=== PATIENT | female | born 1955 | race Hispanic/Latino ===

== ENCOUNTER 2016-12-04 19:19 | Emergency (ER) | payer OTHER ==
[~2016-12-04] VITALS: Ht 157.5 cm; Wt 113.7 kg
[~2016-12-04 19:19] MED LIST: ADULT LOW DOSE81 M1 PO; ALBUTEROL SULF8.5 GM IH; ALIVE WOMEN'S1 EAC1 PO; AMLODIPINE BESYL5 MG PO; ASPIR-TRIN325 M1 PO; ASPIRIN325 MG PO; ATORVASTATIN CA20 MG PO; ATORVASTATIN CA40 MG PO; AUGMENTIN875 MG PO; BENTYL20 MG PO; CARAFATE1 GM PO; CIPROFLOXACIN250 MG; DILAUDID2 MG PO; DILAUDID4 MG PO; DYAZIDE, MA1 CAPSULE PO; ENDOCET 5-3251 EACH PO; ERGOCALCIF50000 UNIT; ERGOCALCIF50000 UNIT PO; FLAGYL500 MG PO; FLONASE16 G1 BOTH NARES; FML S.O.P.3.5 GM; GAS-X80 MG PO; GLUCOPHAGE1000 MG PO; GLUCOPHAGE500 MG PO; HYDROXYCHLOROQ200 MG; KENALOG,ARISTOC80 GM TP; LEVAQUIN750 MG PO; LEVEMIR100 UNIT/2 SC; LEVOFLOXACIN250 MG; LIPITOR40 MG PO; LISINOPRIL5 MG PO; LOPRESSOR25 MG PO; METFORMIN HCL500 MG PO; MICONAZOLE NITR45 GM VG; MILK THISTLE500 MG PO; NASONEX17 GM BOTH NARES; NITROSTAT,NITR0.4 M1 SL; NITROSTAT0.4 MG; NITROSTAT0.4 MG SL; NOVOLOG 10100 UNITS/ SC; NUCYNTA ER200 MG; OMEPRAZOLE40 M1 PO; PANTOPRAZOLE SO40 MG PO; PERCOCET 5/31 TABLET PO; PLAQUENIL200 MG; PLAQUENIL200 MG PO; PREDNISONE20 MG; PROMETHAZINE HC25 M1 PO; PROTONIX40 MG PO; RANITIDINE HCL150 MG PO; SIMVASTATIN PO; SIMVASTATIN20 MG PO; STADOL NASAL2.5 ML; SUCRALFATE1 GM PO; TRIAMTERENE-HC1 EACH; TRIAMTERENE-HC1 EACH PO; TRULICITY0.75 MG/0. SC; Tylenol Regular Stre PO; VENTOLIN HFA18 GM IH; ZANTAC300 MG PO; ZANTAC75 M1 PO; ZANTAC75 MG PO; ZITHROMAX250 MG PO; ZOCOR5 MG PO; ZOFRAN ODT8 MG PO
[2016-12-04 20:47] LABS: HEMATOCRIT 39.8 % (36.0-46.0); MCH 29.8 PG (29.0-34.0); MCHC 33.9 G/DL (30.0-36.0); MCV 87.9 FL (83-99); MEAN PLAT.VOLUME 11.5 uM^3 (9.5-12.4); PLATELET COUNT 189 K/uL (156-360); RBC DIS.WIDTH-CV 13.7 % (11.8-14.6); RBC DIS.WIDTH-SD 43.3 % (39-53); RED BLOOD COUNT 4.53 M/uL (3.80-5.20); WHITE BLOOD COUNT 6.9 K/uL (4.1-10.2)
[2016-12-04 20:57] LABS: CHLORIDE 96 mEq/L (99-109); POTASSIUM 3.7 mEq/L (3.7-5.4); SODIUM 133 mEq/L (136-147)
[2016-12-04 20:58] LABS: GLUCOSE 157 mg/dL (70-99)
[2016-12-04 21:00] LABS: ANION GAP 14 MEQ/L (2-14)
[2016-12-04 21:02] LABS: GFR ESTIMATE (CALCULATED) 38 mL/min/
[2016-12-04 21:03] LABS: UREA NITROGEN (BUN) 32 mg/dL (9-23)
[2016-12-05 01:10] LABS: ADD MIUA? NO; BILIRUBIN NEGATIVE; BLOOD NEGATIVE; COLOR YELLOW ((YELLOW)); GLUCOSE (STRIP) NEGATIVE; KETONES NEGATIVE; LEUKOCYTES NEGATIVE; NITRITE NEGATIVE; PROTEIN (STRIP) NEGATIVE; UCUL ADDED? NO; UROBILINOGEN 0.2 MG/DL (0.2-1.0)
[2016-12-05] MEDS ORDERED: FIORICET,ESG1 TABLET PO (01:12)
[2016-12-05 01:43] VITALS: BP 126/63
== END 2016-12-05 01:50 | disposition home or self-care (01) ==
LOC: EME 19:19
PROVIDERS: Physician Assistant
DX: R51 Headache (principal); R11.0 Nausea; E11.9 Type 2 diabetes mellitus without complications; E78.5 Hyperlipidemia, unspecified; J45.909 Unspecified asthma, uncomplicated; I25.2 Old myocardial infarction; Z98.61 Coronary angioplasty status; L93.0 Discoid lupus erythematosus; Z79.891 Long term (current) use of opiate analgesic; Z88.0 Allergy status to penicillin; Z88.6 Allergy status to analgesic agent; Z91.041 Radiographic dye allergy status; Z87.891 Personal history of nicotine dependence
CPT/HCPCS: 70450; 80048; 81003; 85027; 93005; 99281; 99284; J1100; J1170; J2765

== ENCOUNTER 2017-01-19 17:29 | Emergency (ER) | payer OTHER ==
[~2017-01-19] VITALS: Ht 157.5 cm; Wt 109.9 kg
[~2017-01-19 17:29] MED LIST changes: +FIORICET,ESG1 TABLET PO
[2017-01-19 18:46] LABS: ADD MIUA? NO; BILIRUBIN NEGATIVE; BLOOD NEGATIVE; COLOR YELLOW ((YELLOW)); GLUCOSE (STRIP) NEGATIVE; KETONES NEGATIVE; LEUKOCYTES NEGATIVE; NITRITE NEGATIVE; PROTEIN (STRIP) 30; UCUL ADDED? NO; UROBILINOGEN 0.2 MG/DL (0.2-1.0)
[2017-01-19 18:47] LABS: MCH 30.2 PG (29.0-34.0); MCV 88.9 FL (83-99); MEAN PLAT.VOLUME 11.5 uM^3 (9.5-12.4); PLATELET COUNT 196 K/uL (156-360); RBC DIS.WIDTH-CV 13.3 % (11.8-14.6); RBC DIS.WIDTH-SD 42.3 % (39-53); WHITE BLOOD COUNT 6.5 K/uL (4.1-10.2)
[2017-01-19 18:57] LABS: CHLORIDE 97 mEq/L (99-109); POTASSIUM 3.7 mEq/L (3.7-5.4); SODIUM 134 mEq/L (136-147)
[2017-01-19 19:00] LABS: GLUCOSE 108 mg/dL (70-99)
[2017-01-19 19:01] LABS: ANION GAP 10 MEQ/L (2-14)
[2017-01-19 19:02] LABS: TOTAL BILIRUBIN 0.5 mg/dL (0.0-1.0)
[2017-01-19 19:03] LABS: ALKALINE PHOSPHATASE 84 IU/L (3-129); GFR ESTIMATE (CALCULATED) 44 mL/min/
[2017-01-19 19:04] LABS: UREA NITROGEN (BUN) 32 mg/dL (9-23)
[2017-01-19 19:07] LABS: LIPASE 34 U/L (1.0-51.0)
[2017-01-19 20:06] VITALS: BP 154/78
== END 2017-01-19 20:52 | disposition home or self-care (01) ==
LOC: EME 17:29
PROVIDERS: Physician Assistant
DX: R10.11 Right upper quadrant pain (principal); R10.12 Left upper quadrant pain; J45.909 Unspecified asthma, uncomplicated; E11.9 Type 2 diabetes mellitus without complications; E78.5 Hyperlipidemia, unspecified; I25.2 Old myocardial infarction; M32.9 Systemic lupus erythematosus, unspecified; Z98.61 Coronary angioplasty status; Z87.891 Personal history of nicotine dependence
CPT/HCPCS: 74176; 80053; 81003; 83690; 85027; 93005; 99281; 99285; J2270; J2405; J7040

== ENCOUNTER 2017-05-13 13:25 | Emergency (ER) | payer OTHER ==
[~2017-05-13] VITALS: Ht 157.5 cm; Wt 109.0 kg
[2017-05-13 14:49] LABS: HEMATOCRIT 42.9 % (36.0-46.0); MCH 28.8 PG (29.0-34.0); MCHC 32.9 G/DL (30.0-36.0); MCV 87.6 FL (83-99); MEAN PLAT.VOLUME 11.6 uM^3 (9.5-12.4); PLATELET COUNT 186 K/uL (156-360); RBC DIS.WIDTH-SD 41.5 % (39-53); WHITE BLOOD COUNT 5.8 K/uL (4.1-10.2)
[2017-05-13 14:51] LABS: CHLORIDE 98 mEq/L (99-109); POTASSIUM 3.7 mEq/L (3.7-5.4); SODIUM 135 mEq/L (136-147)
[2017-05-13 14:53] LABS: GLUCOSE 160 mg/dL (70-99)
[2017-05-13 14:54] LABS: ANION GAP 10 MEQ/L (2-14)
[2017-05-13 14:57] LABS: GFR ESTIMATE (CALCULATED) 41 mL/min/
[2017-05-13 14:58] LABS: UREA NITROGEN (BUN) 28 mg/dL (9-23)
[2017-05-13 15:03] LABS: TROP-I INTERPRETATION NEGATIVE; TROPONIN-I < 0.01 ng/mL (0.0-0.30)
[2017-05-13 16:53] VITALS: BP 143/77
== END 2017-05-13 16:54 | disposition left against medical advice (07) ==
LOC: EME 13:25
DX: R07.89 Other chest pain (principal); I10 Essential (primary) hypertension; E11.9 Type 2 diabetes mellitus without complications; J45.909 Unspecified asthma, uncomplicated; K21.9 Gastro-esophageal reflux disease without esophagitis; I25.2 Old myocardial infarction; Z95.5 Presence of coronary angioplasty implant and graft; Z87.19 Personal history of other diseases of the digestive system; Z88.0 Allergy status to penicillin; Z87.891 Personal history of nicotine dependence
CPT/HCPCS: 71020; 80048; 84484; 85027; 93005; 99281; 99282

== ENCOUNTER 2017-09-09 21:43 | Emergency (ER) | payer OTHER ==
[~2017-09-09] VITALS: Ht 160 cm; Wt 105.8 kg
[2017-09-09 22:10] LABS: HEMATOCRIT 42.2 % (36.0-46.0); MCH 29.3 PG (29.0-34.0); MCHC 33.4 G/DL (30.0-36.0); MCV 87.7 FL (83-99); PLATELET COUNT 187 K/uL (156-360); RBC DIS.WIDTH-CV 12.7 % (11.8-14.6); RBC DIS.WIDTH-SD 40.9 % (39-53); RED BLOOD COUNT 4.81 M/uL (3.80-5.20); WHITE BLOOD COUNT 6.6 K/uL (4.1-10.2)
[2017-09-09 22:21] LABS: CHLORIDE 100 mEq/L (99-109); POTASSIUM 3.6 mEq/L (3.7-5.4); SODIUM 136 mEq/L (136-147)
[2017-09-09 22:24] LABS: GLUCOSE 215 mg/dL (70-99)
[2017-09-09 22:25] LABS: ANION GAP 13 MEQ/L (2-14); TOTAL BILIRUBIN 0.4 mg/dL (0.0-1.0)
[2017-09-09 22:27] LABS: ALKALINE PHOSPHATASE 106 IU/L (3-129); GFR ESTIMATE (CALCULATED) 44 mL/min/
[2017-09-09 22:28] LABS: UREA NITROGEN (BUN) 31 mg/dL (9-23)
[2017-09-09 23:51] LABS: ADD MIUA? NO; BILIRUBIN NEGATIVE; BLOOD NEGATIVE; COLOR STRAW ((YELLOW)); GLUCOSE (STRIP) NEGATIVE; KETONES NEGATIVE; LEUKOCYTES NEGATIVE; NITRITE NEGATIVE; PROTEIN (STRIP) 30; SPECIFIC GRAVITY 1.006 (1.000-1.030); UCUL ADDED? NO; UROBILINOGEN 0.2 MG/DL (0.2-1.0)
[2017-09-10 00:28] LABS: LIPASE 56 U/L (1.0-51.0)
[2017-09-10] MEDS ORDERED: PERCOCET 5/31 TABLET PO (00:44)
[2017-09-10] MEDS ORDERED: MEDROL DOSEPAK4 MG PO (00:46)
[2017-09-10 01:01] VITALS: BP 129/74
== END 2017-09-10 01:02 | disposition home or self-care (01) ==
LOC: EME 21:43
DX: R10.9 Unspecified abdominal pain (principal); M10.9 Gout, unspecified; I10 Essential (primary) hypertension; E11.9 Type 2 diabetes mellitus without complications; K21.9 Gastro-esophageal reflux disease without esophagitis; J45.909 Unspecified asthma, uncomplicated; M32.9 Systemic lupus erythematosus, unspecified; K58.9 Irritable bowel syndrome, unspecified; I25.2 Old myocardial infarction; Z95.5 Presence of coronary angioplasty implant and graft; Z87.891 Personal history of nicotine dependence; Z88.0 Allergy status to penicillin; Z88.8 Allergy status to other drugs, medicaments and biological substances
CPT/HCPCS: 80053; 81003; 83690; 85027; 99281; 99285

== ENCOUNTER 2017-10-02 18:01 | Emergency (ER) | payer OTHER ==
[~2017-10-02] VITALS: Ht 157.5 cm; Wt 105.9 kg
[~2017-10-02 18:01] MED LIST changes: +MEDROL DOSEPAK4 MG PO
[2017-10-02 18:18] LABS: POINT-OF-CARE METER ID UU13113778
[2017-10-02 19:10] LABS: CHLORIDE 94 mEq/L (99-109); POTASSIUM 3.5 mEq/L (3.7-5.4); SODIUM 132 mEq/L (136-147)
[2017-10-02 19:11] LABS: GLUCOSE 127 mg/dL (70-99)
[2017-10-02 19:13] LABS: ANION GAP 10 MEQ/L (2-14)
[2017-10-02 19:15] LABS: GFR ESTIMATE (CALCULATED) 38 mL/min/
[2017-10-02 19:16] LABS: UREA NITROGEN (BUN) 28 mg/dL (9-23)
[2017-10-02] MEDS ORDERED: LEVEMIR100 UNIT/2 SC (20:04)
[2017-10-02] MEDS ORDERED: QUINIDINE SULF200 MG PO (20:04)
[2017-10-02] MEDS ORDERED: QUININE SULFAT324 MG PO (20:20)
[2017-10-02 20:31] VITALS: BP 159/67
== END 2017-10-02 20:32 | disposition home or self-care (01) ==
LOC: EXP 18:01 → EME 18:01 → EXP 20:32
PROVIDERS: Physician Assistant
DX: R25.2 Cramp and spasm (principal); R10.10 Upper abdominal pain, unspecified; Z76.0 Encounter for issue of repeat prescription; J45.909 Unspecified asthma, uncomplicated; E11.9 Type 2 diabetes mellitus without complications; I10 Essential (primary) hypertension; I25.2 Old myocardial infarction; K21.9 Gastro-esophageal reflux disease without esophagitis; M32.9 Systemic lupus erythematosus, unspecified; M10.9 Gout, unspecified; Z95.5 Presence of coronary angioplasty implant and graft; Z88.0 Allergy status to penicillin; Z88.6 Allergy status to analgesic agent; Z87.891 Personal history of nicotine dependence
CPT/HCPCS: 80048; 82948; 99281; 99283

== ENCOUNTER 2017-12-26 10:38 | Emergency (ER) | payer OTHER ==
[~2017-12-26] VITALS: Ht 160 cm; Wt 104.7 kg
[~2017-12-26 10:38] MED LIST changes: +QUINIDINE SULF200 MG PO; +QUININE SULFAT324 MG PO
[2017-12-26 11:20] LABS: HEMATOCRIT 41.5 % (36.0-46.0); HEMOGLOBIN 14.1 G/DL (11.9-15.5); MCH 30.1 PG (29.0-34.0); MCV 88.5 FL (83-99); PLATELET COUNT 196 K/uL (156-360); RBC DIS.WIDTH-SD 42.4 % (39-53); RED BLOOD COUNT 4.69 M/uL (3.80-5.20); WHITE BLOOD COUNT 8.2 K/uL (4.1-10.2)
[2017-12-26 11:32] LABS: ALBUMIN 4.1 g/dL (3.2-4.8); CHLORIDE 99 mEq/L (99-109); POTASSIUM 3.4 mEq/L (3.7-5.4); SODIUM 136 mEq/L (136-147)
[2017-12-26 11:35] LABS: GLUCOSE 162 mg/dL (70-99); TOTAL PROTEIN 7.1 g/dL (6.4-8.3)
[2017-12-26 11:37] LABS: TOTAL BILIRUBIN 0.6 mg/dL (0.0-1.0)
[2017-12-26 11:38] LABS: ALKALINE PHOSPHATASE 93 IU/L (3-129); CREATININE 1.2 mg/dL (0.6-1.3); GFR ESTIMATE (CALCULATED) 49 mL/min/
[2017-12-26 11:39] LABS: UREA NITROGEN (BUN) 27 mg/dL (9-23)
[2017-12-26 11:40] LABS: AST (GOT) 25 IU/L (2-34)
[2017-12-26 11:41] LABS: ALT (GPT) 41 IU/L (3-49)
[2017-12-26 12:00] LABS: APPEARANCE CLEAR ((CLEAR)); BILIRUBIN NEGATIVE; BLOOD NEGATIVE; COLOR STRAW ((YELLOW)); GLUCOSE (STRIP) NEGATIVE; KETONES NEGATIVE; LEUKOCYTES NEGATIVE; NITRITE NEGATIVE; PROTEIN (STRIP) NEGATIVE; SPECIFIC GRAVITY 1.005 (1.000-1.030); UCUL ADDED? NO; UROBILINOGEN 0.2 MG/DL (0.2-1.0)
[2017-12-26] MEDS ORDERED: FLAGYL500 MG PO (12:13)
[2017-12-26] MEDS ORDERED: CIPRO500 MG PO (12:13)
[2017-12-26 12:44] VITALS: BP 150/90
[2017-12-26 13:29] LABS: C DIFF TOXIN NEGATIVE (NEGATIVE)
== END 2017-12-26 13:04 | disposition home or self-care (01) ==
LOC: EME 10:38
PROVIDERS: Emergency Medicine
DX: K57.32 Diverticulitis of large intestine without perforation or abscess without bleeding (principal); R19.7 Diarrhea, unspecified; Z90.49 Acquired absence of other specified parts of digestive tract; Z90.710 Acquired absence of both cervix and uterus; R91.8 Other nonspecific abnormal finding of lung field; I71.4 Abdominal aortic aneurysm, without rupture; I10 Essential (primary) hypertension; E11.9 Type 2 diabetes mellitus without complications; J45.909 Unspecified asthma, uncomplicated; Z95.5 Presence of coronary angioplasty implant and graft; Z88.0 Allergy status to penicillin; Z87.891 Personal history of nicotine dependence
CPT/HCPCS: 74176; 80053; 81003; 85027; 87493; 87506; 93005; 99281; 99284

== ENCOUNTER 2018-03-12 00:16 | Observation (INO) | payer OTHER ==
[~2018-03-12] VITALS: Ht 157.5 cm; Wt 103.1 kg
[~2018-03-12 00:16] MED LIST changes: +CIPRO500 MG PO
[2018-03-12 00:54] LABS: HEMATOCRIT 40.2 % (36.0-46.0); HEMOGLOBIN 13.7 G/DL (11.9-15.5); MCHC 34.1 G/DL (30.0-36.0); MCV 88.2 FL (83-99); PLATELET COUNT 186 K/uL (156-360); RBC DIS.WIDTH-SD 41.9 % (39-53); RED BLOOD COUNT 4.56 M/uL (3.80-5.20); WHITE BLOOD COUNT 5.1 K/uL (4.1-10.2)
[2018-03-12 01:08] LABS: ALBUMIN 4.4 g/dL (3.2-4.8); CHLORIDE 99 mEq/L (99-109); POTASSIUM 3.4 mEq/L (3.7-5.4); SODIUM 136 mEq/L (136-147)
[2018-03-12 01:10] LABS: GLUCOSE 170 mg/dL (70-99); TOTAL PROTEIN 7.6 g/dL (6.4-8.3)
[2018-03-12 01:12] LABS: TOTAL BILIRUBIN 0.6 mg/dL (0.0-1.0)
[2018-03-12 01:14] LABS: ALKALINE PHOSPHATASE 104 IU/L (3-129); CREATININE 1.3 mg/dL (0.6-1.3); GFR ESTIMATE (CALCULATED) 44 mL/min/
[2018-03-12 01:15] LABS: TROP-I INTERPRETATION NEGATIVE; TROPONIN-I < 0.01 ng/mL (0.0-0.30); UREA NITROGEN (BUN) 29 mg/dL (9-23)
[2018-03-12 01:16] LABS: AST (GOT) 27 IU/L (2-34)
[2018-03-12 01:17] LABS: ALT (GPT) 49 IU/L (3-49); LIPASE 46 U/L (1.0-51.0)
[2018-03-12 05:23] VITALS: BP 119/67
[2018-03-12 07:47] LABS: TROP-I INTERPRETATION NEGATIVE; TROPONIN-I 0.02 ng/mL (0.0-0.30)
[2018-03-12 08:26] VITALS: BP 165/77
[2018-03-12] MEDS ORDERED: AMLODIPINE BESYL5 MG PO (10:12)
[2018-03-12] MEDS ORDERED: CIPRO500 MG PO (10:12)
[2018-03-12] MEDS ORDERED: FLAGYL500 MG PO (10:12)
[2018-03-12] MEDS ORDERED: PROBIOTIC1 EAC1 PO (10:22)
[2018-03-12] MEDS ORDERED: TRULICITY1.5 MG/0.5 SC (11:57)
[2018-03-12] MEDS ORDERED: PERCOCET 10/1 TABLET PO (11:59)
[2018-03-12] MEDS ORDERED: CYMBALTA30 MG PO (12:01)
[2018-03-12] MEDS ORDERED: VITAMIN D31000 UNI2 PO (12:01)
[2018-03-12] MEDS ORDERED: PLAQUENIL200 MG PO (12:01)
[2018-03-12] MEDS ORDERED: DYAZIDE, MA1 CAPSULE PO (12:01)
[2018-03-12] MEDS ORDERED: BIOFREEZE TP (12:02)
[2018-03-12] MEDS ORDERED: CHROMIUM PIC1000 MCG PO (12:02)
[2018-03-12 12:31] VITALS: BP 169/89
[2018-03-12 14:26] LABS: TROP-I INTERPRETATION NEGATIVE; TROPONIN-I 0.01 ng/mL (0.0-0.30)
== END 2018-03-12 15:38 | disposition home or self-care (01) ==
LOC: EME → EDBD 00:16 → EDOF 02:42 → ENRESERV 02:42 → EDOF 02:42 → ENRESERV 04:03 → 4SOUTH 04:57
PROVIDERS: Emergency Medicine; Internal Medicine; Physician Assistant
DX: R07.9 Chest pain, unspecified (principal); R10.9 Unspecified abdominal pain; R19.7 Diarrhea, unspecified; I25.10 Atherosclerotic heart disease of native coronary artery without angina pectoris; Z95.5 Presence of coronary angioplasty implant and graft; I10 Essential (primary) hypertension; E78.5 Hyperlipidemia, unspecified; E11.9 Type 2 diabetes mellitus without complications; M32.9 Systemic lupus erythematosus, unspecified; K58.9 Irritable bowel syndrome, unspecified; Z90.49 Acquired absence of other specified parts of digestive tract; Z90.710 Acquired absence of both cervix and uterus; Z87.891 Personal history of nicotine dependence; Z82.0 Family history of epilepsy and other diseases of the nervous system; Z84.1 Family history of disorders of kidney and ureter; Z88.5 Allergy status to narcotic agent; Z88.0 Allergy status to penicillin; Z88.6 Allergy status to analgesic agent; Z91.048 Other nonmedicinal substance allergy status; Z79.4 Long term (current) use of insulin
CPT/HCPCS: 71046; 80053; 82948; 83690; 83880; 84484; 85027; 93005; 99281; 99285; G0378; J1644; J1815; J7030; S0028

== ENCOUNTER 2018-04-21 08:37 | Day surgery (SDC) | payer OTHER ==
[~2018-04-21] VITALS: Ht 157.5 cm; Wt 102.5 kg
[~2018-04-21 08:37] MED LIST changes: +BIOFREEZE TP; +CHROMIUM PIC1000 MCG PO; +CYMBALTA30 MG PO; +MAXZIDE 37.5 M1 EACH PO; +NORVASC5 MG PO; +PERCOCET 10/1 TABLET PO; +PROBIOTIC1 EAC1 PO; +TRULICITY1.5 MG/0.5 SC; +VITAMIN D31000 UNI2 PO
== END 2018-04-21 09:50 | disposition home or self-care (01) ==
LOC: PAIN 08:37 → SDC 09:00 → PAIN 09:50
PROVIDERS: Anesthesiology Pain Medicine
DX: M51.14 Intervertebral disc disorders with radiculopathy, thoracic region (principal); G89.4 Chronic pain syndrome; M54.5 Low back pain; I10 Essential (primary) hypertension; J45.909 Unspecified asthma, uncomplicated; E11.9 Type 2 diabetes mellitus without complications; I25.2 Old myocardial infarction; K21.9 Gastro-esophageal reflux disease without esophagitis; R94.31 Abnormal electrocardiogram [ECG] [EKG]; Z87.891 Personal history of nicotine dependence; Z88.0 Allergy status to penicillin; Z88.6 Allergy status to analgesic agent; Z91.041 Radiographic dye allergy status; Z95.5 Presence of coronary angioplasty implant and graft; Z79.891 Long term (current) use of opiate analgesic; Z79.84 Long term (current) use of oral hypoglycemic drugs
CPT/HCPCS: 82948; J1100; J2250

== ENCOUNTER 2018-05-22 08:43 | Day surgery (SDC) | payer OTHER ==
[~2018-05-22] VITALS: Ht 160 cm; Wt 104.3 kg
[~2018-05-22 08:43] MED LIST changes: +LIDOCAINE700 MG TP
== END 2018-05-22 10:30 | disposition home or self-care (01) ==
LOC: PAIN 08:43 → SDC 09:00 → PAIN 09:00
PROVIDERS: Anesthesiology Pain Medicine
DX: M54.14 Radiculopathy, thoracic region (principal); M51.24 Other intervertebral disc displacement, thoracic region; G89.4 Chronic pain syndrome; M32.9 Systemic lupus erythematosus, unspecified; Z79.899 Other long term (current) drug therapy; M40.204 Unspecified kyphosis, thoracic region; I71.4 Abdominal aortic aneurysm, without rupture; I25.2 Old myocardial infarction; Z95.5 Presence of coronary angioplasty implant and graft; I10 Essential (primary) hypertension; E11.9 Type 2 diabetes mellitus without complications; Z79.4 Long term (current) use of insulin; J45.909 Unspecified asthma, uncomplicated; E55.9 Vitamin D deficiency, unspecified; Z87.891 Personal history of nicotine dependence; Z88.0 Allergy status to penicillin; Z88.6 Allergy status to analgesic agent; Z91.041 Radiographic dye allergy status
CPT/HCPCS: 82948; J1100; J2250